=== PATIENT | male | born 1950 | race Two or more races ===

== ENCOUNTER 2016-07-05 08:46 | Emergency (ER) | payer OTHER ==
[2016-07-05 09:10] VITALS: BP 155/96; PULSE 88; RESP 14; TEMP 97.9; O2SAT 95
--- NOTE | 2016-07-05 10:05 | EDPHY ---
HPI/HX/ROS/PE/MDM Narrative: Chief complaint: right ankle pain and swelling HPI: 66-year-old male with a history of gout and Parkinson's disease presenting with several days of worsening right foot and ankle swelling. Patient states that began is tone and also spread up into his ankle. This been going on for week or so but has been noted we worsen last 3 days. Mild redness. Mildly warm to the touch. States he does not feel quite like his usual gout as it does not get the sharp pain like sensation that he normally gets with gout. No fevers or chills. This state for the past several months he has been getting pains in different joints on the right side of his body. No numbness or tingling. No recent injuries. He did travel here from [place] earlier this week. Symptoms began prior to his travel. No calf pain or swelling. No shortness of breath. ROS: 10 point Review of Systems is negative except as noted in the HPI. Physical exam: Gen: Awake, Alert, No Distress HEENT: Nose: no rhinorrhea Eyes: PERRLA, EOMI Mouth: Moist mucosa Neck: Supple, no JVD Chest: nontender, lungs clear to auscultation Heart: S1, S2 normal, no murmur Abd: Soft, non-tender, no guarding Back: no CVA tenderness, no midline tenderness Ext: Right foot and ankle are mildly warm to the touch, mildly erythematous, there is significant swelling to the foot and ankle. Swelling ends just proximal to the malleoli. Sensations intact. He has 2+ DP and PT pulses. He is tender over the ankle joint anteriorly. Skin: See extremity exam Neuro: CN II-XII intact, Sensation grossly intact, Strength 5/5 in bilateral upper and lower extremities ED Course: Patient's with symptoms consistent with an inflammatory arthritis of the right foot and ankle. It is warm to the touch. Does not have a local doctor follow- up. He states that this is not feel like his usual gout. He has been compliant with his allopurinol. Will perform an arthrocentesis to evaluate the synovial fluid for possible infection versus inflammatory cause. Procedure: Arthrocentesis. After verbal informed consent was obtained explaining the risks including but not limited to infection and bleeding a arthrocentesis was performed on the right ankle. The patient was prepped and draped in the usual sterile fashion. The joint was anesthetized with 1% lidocaine with epinephrine. Approximately 3 cc of cloudy yellow fluid was obtained. There were no complications. The procedure was performed by myself. - Data Points Laboratory Results: 07/05/16 07/05/16 09:35 09:30 Fl Pathologist Review Pending Synovial Source SYNOVIAL Synovial Color RED (CLS/PALE YL) Synovial Appearance CLOUDY H (CLEAR) Synovial WBC 93497 H /mm3 (0-150) Synovial RBC 64575 H /mm3 (0-0) Synovial Neutrophils 92 H % (0-25) Synovial Lymphocytes 3 % Synov Monos/Macrophage 5 % Synovial Crystals Pending General Time Seen by Provider: 07/05/16 08:58 Initial Vital Signs: Initial Vital Signs Temperature (C) 36.6 C 07/05/16 09:05 Heart Rate 88 07/05/16 09:05 Respiratory Rate 14 07/05/16 09:05 Blood Pressure 155/96 H 07/05/16 09:05 O2 Sat (%) 95 07/05/16 09:05 O2 Delivery Mode Room Air Allergies/Adverse Reactions: No Known Allergies Allergy (Unverified 07/05/16 09:04) Home Medications: Medication Instructions Recorded Allopurinol 07/05/16 Carbidopa/Levodopa 07/05/16 Clonazepam 07/05/16 Colchicine 0.6 mg PO Q6 PRN #20 capsule 07/05/16 Indomethacin [Indocin 25 mg (*)] 50 mg PO Q8 #20 cap 07/05/16 Departure - Departure Disposition: Home, Routine, Self-Care Clinical Impression: Gout Condition: Good Instructions: Gout (ED), Arthritis (ED) Additional Instructions: If your ankle fluid is positive for crystals we will call you in you should start taking the colchicine. Take the indomethacin as a anti-inflammatory. Follow up with primary care in 3-4 days if symptoms are not improving. Referrals: OUT OF STATE,. [Primary Care Provider] - As per Instructions [facility] [Outside] - As per Instructions Prescriptions: Colchicine 0.6 mg PO Q6 PRN #20 capsule PRN Reason: Pain, Moderate Indomethacin [Indocin 25 mg (*)] 50 mg PO Q8 #20 cap
[2016-07-05 11:35] LABS: WBC, SYNOVIAL FLUID 12285 /mm3 (0-150)
--- NOTE | 2016-07-05 12:08 | UCPHY ---
H & P Patient Type: New Chief Complaint Nursing Narrative: generalized joint swelling off and on X months; 3 days R toe to ankle swelling worsening Time Seen by Provider: 07/05/16 08:58 HPI/ROS: Chief complaint: right ankle pain and swelling HPI: 66-year-old male with a history of gout and Parkinson's disease presenting with several days of worsening right foot and ankle swelling. Patient states that began is tone and also spread up into his ankle. This been going on for week or so but has been noted we worsen last 3 days. Mild redness. Mildly warm to the touch. States he does not feel quite like his usual gout as it does not get the sharp pain like sensation that he normally gets with gout. No fevers or chills. This state for the past several months he has been getting pains in different joints on the right side of his body. No numbness or tingling. No recent injuries. He did travel here from [place] earlier this week. Symptoms began prior to his travel. No calf pain or swelling. No shortness of breath. ROS: 10 point Review of Systems is negative except as noted in the HPI. Physical exam: Gen: Awake, Alert, No Distress HEENT: Nose: no rhinorrhea Eyes: PERRLA, EOMI Mouth: Moist mucosa Neck: Supple, no JVD Chest: nontender, lungs clear to auscultation Heart: S1, S2 normal, no murmur Abd: Soft, non-tender, no guarding Back: no CVA tenderness, no midline tenderness Ext: Right foot and ankle are mildly warm to the touch, mildly erythematous, there is significant swelling to the foot and ankle. Swelling ends just proximal to the malleoli. Sensations intact. He has 2+ DP and PT pulses. He is tender over the ankle joint anteriorly. Skin: See extremity exam Neuro: CN II-XII intact, Sensation grossly intact, Strength 5/5 in bilateral upper and lower extremities Patient's with symptoms consistent with an inflammatory arthritis of the right foot and ankle. It is warm to the touch. Does not have a local doctor follow- up. He states that this is not feel like his usual gout. He has been compliant with his allopurinol. Will perform an arthrocentesis to evaluate the synovial fluid for possible infection versus inflammatory cause. - Personal History Current Tetanus/Diphtheria Vaccine: Yes - Medical/Surgical History Other PMH: Parkinsons. Gout. Shoulder/elbow surgery. Hernia - Family History Significant Family History: No pertinent family hx - Social History Smoking Status: Former smoker Constitutional: Initial Vital Signs Temperature (C) 36.6 C 07/05/16 09:05 Heart Rate 88 07/05/16 09:05 Respiratory Rate 14 07/05/16 09:05 Blood Pressure 155/96 H 07/05/16 09:05 O2 Sat (%) 95 07/05/16 09:05 O2 Delivery Mode Room Air Allergies/Adverse Reactions: No Known Allergies Allergy (Unverified 07/05/16 09:04) Home Medications: Medication Instructions Recorded Allopurinol 07/05/16 Carbidopa/Levodopa 07/05/16 Clonazepam 07/05/16 Colchicine 0.6 mg PO Q6 PRN #20 capsule 07/05/16 Indomethacin [Indocin 25 mg (*)] 50 mg PO Q8 #20 cap 07/05/16 Medical Decision Making Procedures: Procedure: Arthrocentesis. After verbal informed consent was obtained explaining the risks including but not limited to infection and bleeding a arthrocentesis was performed on the right ankle. The patient was prepped and draped in the usual sterile fashion. The joint was anesthetized with 1% lidocaine with epinephrine. Approximately 3 cc of cloudy yellow fluid was obtained. There were no complications. The procedure was performed by myself. ED Course/Re-evaluation: [place] [address] [place]. This is consistent with inflammation but does not indicate infection at this time. Am awaiting crystals to indicate gout which I suspect will be positive given the patient's history. - Data Points Laboratory Results: 07/05/16 07/05/16 09:35 09:30 Fl Pathologist Review Pending Synovial Source SYNOVIAL Synovial Color RED (CLS/PALE YL) Synovial Appearance CLOUDY H (CLEAR) Synovial WBC 71049 H /mm3 (0-150) Synovial RBC 26641 H /mm3 (0-0) Synovial Neutrophils 92 H % (0-25) Synovial Lymphocytes 3 % Synov Monos/Macrophage 5 % Synovial Crystals Pending Departure - Departure Disposition: Home, Routine, Self-Care Clinical Impression: Gout Condition: Good Instructions: Gout (ED), Arthritis (ED) Additional Instructions: If your ankle fluid is positive for crystals we will call you in you should start taking the colchicine. Take the indomethacin as a anti-inflammatory. Follow up with primary care in 3-4 days if symptoms are not improving. Referrals: [facility] [Outside] - As per Instructions OUT OF STATE,. [Primary Care Provider] - As per Instructions Prescriptions: Colchicine 0.6 mg PO Q6 PRN #20 capsule PRN Reason: Pain, Moderate Indomethacin [Indocin 25 mg (*)] 50 mg PO Q8 #20 cap - PQRS PQRS Measurement: 134: Depression screening and followup, PRIME MD-PHQ2 (12 years and older) Over the last 2 weeks, how often have you been bothered by any of the following problems? 1. Feeling down, depressed, or hopeless? 2. Little interest or pleasure in doing things? Patient answered no to both 1 and 2 130: Documentation of medications. Reviewed all patient medications, doses, route and frequency. 226: Do you smoke? No. 47: 65 and older: Advanced care planning. Patient designates surrogate decision maker as spouse . Patient has advanced directive. 51: 18 years old and older with diagnosis of COPD, spirometry performance. Patient has no history of COPD 52: 18 years old and older with COPD and symptoms of COPD or FEV1<60% predicted prescribed a B Agonist. Spirometry not performed; equipment not available.
== END 2016-07-05 12:09 | disposition home or self-care (01) ==
LOC: CED 08:46
PROC: 0M9 Bursae and Ligaments, Drainage (ICD-10-PCS; principal; 2016-07-05)
DX: M10.071 Idiopathic gout, right ankle and foot (principal); G20 Parkinson's disease
CPT/HCPCS: 20605; G0463; 99204-PO